=== PATIENT | female | born 2000 | race American Indian/Alaskan Native ===

== ENCOUNTER 2020-01-28 20:03 | Emergency (ER) | payer SELFPAY ==
[2020-01-28 20:33] LABS: Basophils # (Auto) 0.1 K/mm3 (0.0-0.1); Basophils % (Auto) 0.8 % (0.0-1.8); Eosinophils % (Auto) 0.2 % (0.0-4.3); Hematocrit 40.7 % (30.3-42.9); Hemoglobin 12.6 gm/dl (10.1-14.3); Lymphocytes # (Auto) 2.1 K/mm3 (1.2-5.4); Lymphocytes % (Auto) 27.3 % (13.4-35.0); Mean Corpuscular HGB Conc 31 % (30-34); Mean Corpuscular Volume 72 fl (79-97); Monocytes # (Auto) 0.7 K/mm3 (0.0-0.8); Monocytes % (Auto) 8.9 % (0.0-7.3); Platelet Count 186 K/mm3 (140-440); Red Blood Count 5.69 M/mm3 (3.65-5.03); Red Cell Distribution Width 17.5 % (13.2-15.2)
[2020-01-28 20:52] LABS: Blood Urea Nitrogen 12 mg/dL (7-17); Calcium 9.6 mg/dL (8.4-10.2); Hemolysis Index 3
[2020-01-28 20:53] LABS: BUN/Creatinine Ratio 17
--- NOTE | 2020-01-29 02:54 | Emergency Department Report ---
HPI - [facility] HPI: Room 10 The patient is a 19-year-old female present with a chief complaint of auditory hallucinations and suicidal ideation. [facility] for [facility] hallucinations. Patient states she has been without her psychiatric medication for 1 day and thinks she lost her mind. Patient states and is originally she does not recall what happened and why she was sent. Patient acknowledges she has had auditory hallucinations hearing voices talking about her and laughing at her. When asked if she has had suicidal ideation the patient states yes for approximate 1 month since she has been homeless. Patient states her plan was to cut herself but she denies any active attempts at harming herself <VINCENT LE - Last Filed: 01/29/20 02:51> <JUAN DAVID LUEVANO - Last Filed: 01/29/20 15:19> - General Chief Complaint: Psych Time Seen by Provider: 01/29/20 02:47 ED Past Medical Hx - Past Medical History Hx Psychiatric Treatment: Yes (Bipolar and Schizophrenia) - Surgical History Past Surgical History?: No Additional Surgical History: Tracheostomy as a child - Family History Family history: no significant - Social History Smoking Status: Never Smoker Substance Use Type: None (Denies illicit drug use) <VINCENT LE - Last Filed: 01/29/20 02:51> ED Review of Systems ROS: Stated complaint: MH Other details as noted in HPI Constitutional: no symptoms reported Respiratory: no symptoms reported Endocrine: no symptoms reported Psychiatric: auditory hallucinations, suicidal thoughts. denies: visual hallucinations <VINCENT LE - Last Filed: 01/29/20 02:51> ROS: Stated complaint: MH Other details as noted in HPI <JUAN DAVID LUEVANO - Last Filed: 01/29/20 15:19> Physical Exam - Physical Exam Physical Exam: GENERAL: The patient is well-developed well-nourished female sitting in chair not appearing to be in acute distress HEENT: Normocephalic. Atraumatic. Extraocular motions are intact. Patient has moist mucous membranes. NECK: Supple. Trachea midline CHEST/LUNGS: Clear to auscultation. There is no respiratory distress noted. HEART/CARDIOVASCULAR: Regular. There is no tachycardia. There is no gallop rub or murmur. ABDOMEN: Abdomen is soft, nontender. Patient has normal bowel sounds. There is no abdominal distention. SKIN: There is no rash. There is no diaphoresis. NEURO: The patient is awake, alert, and oriented. The patient is cooperative. The patient has normal speech and gait. MUSCULOSKELETAL: There is no evidence of acute injury. <VINCENT LE - Last Filed: 01/29/20 02:51> - Physical Exam Vital Signs: Vital Signs 01/29/20 01/29/20 03:06 08:34 Temperature 97.6 F Pulse Rate 73 Respiratory 18 20 Rate Blood Pressure 120/55 [Left] O2 Sat by Pulse 98 100 Oximetry <JUAN DAVID LUEVANO - Last Filed: 01/29/20 15:19> ED Course Vital Signs 01/29/20 01/29/20 03:06 08:34 Temperature 97.6 F Pulse Rate 73 Respiratory 18 20 Rate Blood Pressure 120/55 [Left] O2 Sat by Pulse 98 100 Oximetry <JUAN DAVID LUEVANO - Last Filed: 01/29/20 15:19> ED Medical Decision Making - Lab Data Result diagrams: 01/28/20 20:20 01/28/20 20:20 Laboratory Tests 01/28/20 01/28/20 01/28/20 20:20 20:20 20:20 WBC RBC Hgb Hct MCV MCH MCHC RDW Plt Count Lymph % (Auto) [place] % (Auto) Eos % (Auto) Baso % (Auto) Lymph # (Auto) [place] # (Auto) Eos # (Auto) Baso # (Auto) Seg Neutrophils % Seg Neutrophils # Sodium 140 Potassium 4.0 Chloride 99.3 Carbon Dioxide 24 Anion Gap 21 BUN 12 Creatinine 0.7 Estimated GFR > 60 BUN/Creatinine Ratio 17 Glucose 120 H Calcium 9.6 Salicylates < 0.3 L Acetaminophen 5.0 L Plasma/Serum Alcohol 01/28/20 01/28/20 20:20 20:20 WBC 7.9 RBC 5.69 H Hgb 12.6 Hct 40.7 MCV 72 L MCH 22 L MCHC 31 RDW 17.5 H Plt Count 186 Lymph % (Auto) 27.3 [place] % (Auto) 8.9 H Eos % (Auto) 0.2 Baso % (Auto) 0.8 Lymph # (Auto) 2.1 [place] # (Auto) 0.7 Eos # (Auto) 0.0 Baso # (Auto) 0.1 Seg Neutrophils % 62.8 Seg Neutrophils # 4.9 Sodium Potassium Chloride Carbon Dioxide Anion Gap BUN Creatinine Estimated GFR BUN/Creatinine Ratio Glucose Calcium Salicylates Acetaminophen Plasma/Serum Alcohol < 0.01 - Differential Diagnosis Suicidal ideation, auditory hallucination <VINCENT LE - Last Filed: 01/29/20 02:51> - Lab Data Result diagrams: 01/28/20 20:20 01/28/20 20:20 - Medical Decision Making Our mental health team has cleared patient for discharge home. At this time she does not meet inpatient criteria. I have provided discharge orders. <JUAN DAVID LUEVANO - Last Filed: 01/29/20 15:19> Critical care attestation.: If time is entered above; I have spent that time in minutes in the direct care of this critically ill patient, excluding procedure time. <VINCENT LE - Last Filed: 01/29/20 02:51> Critical care attestation.: If time is entered above; I have spent that time in minutes in the direct care of this critically ill patient, excluding procedure time. <JUAN DAVID LUEVANO - Last Filed: 01/29/20 15:19> ED Disposition Is pt being admited?: No Does the pt Need Aspirin: No <VINCENT LE - Last Filed: 01/29/20 02:51> Is pt being admited?: No Does the pt Need Aspirin: No <JUAN DAVID LUEVANO - Last Filed: 01/29/20 15:19> Clinical Impression: Schizophrenia, Auditory hallucination Disposition: DC-01 TO HOME OR SELFCARE Condition: Stable Additional Instructions: Outpatient COMMUNITY Behavioral Health Resources: [facility] ([facility]) [address] [place] [address] / Monday thru Monday - 8am - 5pm [facility] Address: [address] [place] [address] Monday thru Monday- 7am-2pm [facility] Address: [address] [place] [address] Monday thru Monday: 8:30AM-5PM CRISIS RESOURCES [place] Crisis Line: Suicide Prevention Line: Crisis Text Line: Text START to 515256 Emergency: 911 OUTPATIENT MENTAL HEALTH RESOURCES [facility], [facility] Jaja Parr MD: [address] [place] [address] [place] [address] [place] [facility]: [facility] [address] [place] [address] [place] [address] [phone] [facility]: [facility] Healthcare: [address] [facility] [place] [address] [facility] [address] [facility]: Shukri Ornelas MD: [address] [facility] [id number] [facility]: [address] [place], [place] [id number] [phone] [place] CRISIS AND ACCESS LINE: Referrals: PRIMARY CAREMD [Primary Care Provider] - 3-5 Days
[2020-01-29 08:35] VITALS: BP 120/55
[2020-01-29] MEDS ORDERED: ZIPRASIDONE MESYLATE 20 MG VIAL IM ONE (11:38)
[2020-01-29 12:03] LABS: Bacteria,Urine 1+ /HPF (Negative); Bilirubin,Urine NEG (Negative); Blood,Urine NEG (Negative); Color,Urine Yellow (Yellow); Mucus,Urine FEW /HPF; Protein,Urine <15 mg/dL mg/dL (Negative)
[2020-01-29 12:10] LABS: Amphetamine Screen,Urine Negative; Benzodiazepines Screen,Urine Negative; Cannabinoid Screen,Urine Negative; Cocaine Screen,Urine Negative; Methadone Screen,Urine Negative; Opiate Screen,Urine Negative
== END 2020-01-29 22:00 | disposition home or self-care (01) ==
LOC: ED 20:03
DX: R41.82 Altered mental status, unspecified (principal); Z53.21 Procedure and treatment not carried out due to patient leaving prior to being seen by health care provider
CPT/HCPCS: 36415; 80048; 80307; 81001; 85025; J3486; 80320; G0480